=== PATIENT | male | born 1970 | race Caucasian/White ===

== ENCOUNTER → 2017-10-18 09:44 | Outpatient (CLI) | payer OTHER ==
[2017-10-18 10:14] LABS: BASOPHILS 0.6 % (0-2); EOSINOPHILS 1.3 % (0-7); HEMOGLOBIN 14.8 g/dL (13.5-17.5); IMMATURE GRANULOCYTES 0.4 % (0-5); LYMPHOCYTES 31.8 % (15-50); MCH 29.7 pg (26.0-34.0); MCHC 34.4 g/dL (31.0-37.0); MCV 86.2 fL (80.0-100.0); MEAN PLATELET VOLUME 11.5 fL (7.4-10.4); MONOCYTES 8.6 % (2-11); NEUTROPHILS 57.3 % (40-80); PLATELET COUNT 188 10x3/uL (130-400); RBC 4.99 10x6/uL (4.20-6.10); RDW 12.2 % (11.5-14.5); WBC 5.3 10x3/uL (4.8-10.8)
[2017-10-18 10:39] LABS: ALBUMIN 4.1 g/dL (3.4-5.0); ALKALINE PHOSPHATASE 101 U/L (46-116); ALT (SGPT) 77 U/L (10-68); CALC OSMOLALITY 278 mosm/kg (275-300); CALCIUM 9.1 mg/dL (8.5-10.1); CARBON DIOXIDE 27.2 mmol/L (21.0-32.0); CHLORIDE - SERUM 106 mmol/L (98-107); CHOL - HDL RATIO 5.2 ratio (2.3-4.9); CHOLESTEROL, TOTAL 183 mg/dL (0-200); GLUCOSE 104 mg/dL (74-106); HDL CHOLESTEROL 35 mg/dL (32-96); LDL CHOLESTEROL 106 mg/dL (0-100); PROTEIN - SERUM 7.8 g/dL (6.4-8.2); SODIUM 140 mmol/L (136-145); THYROID STIMULATING HORMONE 2.16 uIU/mL (0.36-3.74); TRIGLYCERIDE 214 mg/dL (30-200); UREA NITROGEN 13 mg/dL (7-18); eGFR NON AFRICAN AMERICAN 85 mL/min (90-120)
== END | disposition home or self-care (01) ==
LOC: D.LAB 09:44
PROVIDERS: Family Medicine
DX: Z00.00 Encounter for general adult medical examination without abnormal findings (principal); R10.9 Unspecified abdominal pain

== ENCOUNTER → 2017-10-24 07:50 | Outpatient (CLI) | payer OTHER | END | disposition home or self-care (01) | LOC: D.US 07:50 | DX: R10.11 Right upper quadrant pain (principal) ==

== ENCOUNTER → 2019-04-11 16:52 | Outpatient (CLI) | payer OTHER | END | disposition home or self-care (01) | LOC: D.RAD 16:52 | PROVIDERS: ATTEND Family Medicine | DX: R06.00 Dyspnea, unspecified (principal) ==

== ENCOUNTER → 2019-10-02 07:57 | Outpatient (CLI) | payer OTHER | END | disposition home or self-care (01) | LOC: D.US 10-01 15:00 | PROVIDERS: ATTEND Family Medicine | DX: R22.1 Localized swelling, mass and lump, neck (principal) ==

== ENCOUNTER → 2020-08-25 08:24 | Outpatient (CLI) | payer OTHER ==
[2020-08-25 08:45] LABS: BASOPHILS 0.4 % (0-2); HEMATOCRIT 42.8 % (42.0-54.0); IMMATURE GRANULOCYTES 0.6 % (0-5); LYMPHOCYTE ABS# 1.47 10x3/uL (1.32-3.57); MCH 27.7 pg (26.0-34.0); MCHC 32.7 g/dL (31.0-37.0); MCV 84.6 fL (80.0-100.0); MEAN PLATELET VOLUME 11.1 fL (7.4-10.4); MONOCYTES 9.1 % (2-11); NEUTROPHIL ABS# 2.99 10x3/uL (1.78-5.38); NEUTROPHILS 58.9 % (40-80); PLATELET COUNT 222 10x3/uL (130-400); RBC 5.06 10x6/uL (4.20-6.10); RDW 12.6 % (11.5-14.5); WBC 5.1 10x3/uL (4.8-10.8)
[2020-08-25 09:25] LABS: ALBUMIN 4.2 g/dL (3.4-5.0); ALKALINE PHOSPHATASE 98 U/L (30-120); ALT (SGPT) 67 U/L (10-68); BILIRUBIN - TOTAL 0.68 mg/dL (0.2-1.3); CALC OSMOLALITY 279 mosm/kg (275-300); CALCIUM 9.3 mg/dL (8.5-10.1); CARBON DIOXIDE 28.1 mmol/L (21.0-32.0); CHLORIDE - SERUM 104 mmol/L (98-107); CHOL - HDL RATIO 5.4 ratio (2.3-4.9); CHOLESTEROL, TOTAL 185 mg/dL (0-200); CREATININE - SERUM 0.9 mg/dL (0.6-1.3); GLUCOSE 99 mg/dL (74-106); HDL CHOLESTEROL 34 mg/dL (32-96); LDL CHOLESTEROL 83 mg/dL (0-100); LDL-HDL RATIO 2.4 ratio (1.5-3.5); POTASSIUM - SERUM 4.4 mmol/L (3.5-5.1); PROTEIN - SERUM 7.7 g/dL (6.4-8.2); SODIUM 139 mmol/L (136-145); THYROID STIMULATING HORMONE 2.16 uIU/mL (0.36-3.74); TRIGLYCERIDE 342 mg/dL (30-200); UREA NITROGEN 17 mg/dL (7-18); eGFR NON AFRICAN AMERICAN > 90 mL/min (90-120)
== END | disposition home or self-care (01) ==
LOC: D.LAB 08:24
PROVIDERS: ATTEND Family Medicine
DX: Z00.00 Encounter for general adult medical examination without abnormal findings (principal)

== ENCOUNTER 2020-09-03 07:14 | Day surgery (SDC) | payer OTHER ==
[~2020-09-03] VITALS: Ht 177.8 cm; Wt 96.6 kg
[2020-09-03 07:37] LABS: HEMATOCRIT 41.2 % (42.0-54.0); HEMOGLOBIN 13.8 g/dL (13.5-17.5); MCH 28.2 pg (26.0-34.0); MCHC 33.5 g/dL (31.0-37.0); MCV 84.3 fL (80.0-100.0); RBC 4.89 10x6/uL (4.20-6.10); RDW 12.7 % (11.5-14.5); WBC 4.2 10x3/uL (4.8-10.8)
[2020-09-03 07:54] LABS: CALC OSMOLALITY 282 mosm/kg (275-300); CALCIUM 8.9 mg/dL (8.5-10.1); CARBON DIOXIDE 25.6 mmol/L (21.0-32.0); CHLORIDE - SERUM 105 mmol/L (98-107); CREATININE - SERUM 0.9 mg/dL (0.6-1.3); GLUCOSE 103 mg/dL (74-106); POTASSIUM - SERUM 4.1 mmol/L (3.5-5.1); SODIUM 141 mmol/L (136-145); UREA NITROGEN 18 mg/dL (7-18); eGFR NON AFRICAN AMERICAN > 90 mL/min (90-120)
[2020-09-03 09:20] VITALS: BP 115/74; Ht 177.8 cm; Wt 96.6 kg
[2020-09-03] MEDS ORDERED: TYLENOL W/CODEI1 TAB PO (11:31)
[2020-09-03] MEDS ORDERED: BACTRIM DS TAB1 EAC1 PO (11:31)
--- NOTE | 2020-09-03 13:32 | NUR ---
7747 PT'S AT DESK REQUESTS MORE PAIN MEDICINE FOR HER , STATES PAIN IS THE SAME. DR. COELLO PAGED.
--- NOTE | 2020-09-03 13:54 | NUR ---
1350 O2 SAT 96% ON 2L. PT. SLEEPING. AT SIDE.
== END 2020-09-03 15:00 | disposition home or self-care (01) ==
LOC: D.OPS 07:14
PROVIDERS: Anesthesiology; ATTEND Surgery
DX: R22.1 Localized swelling, mass and lump, neck (principal); R22.2 Localized swelling, mass and lump, trunk